=== PATIENT | female | born 1970 | race Caucasian/White ===

== ENCOUNTER → 2024-03-25 11:56 | Outpatient (REF) | payer BC, SELFPAY | LOC: MRI 3T 11:56 | PROVIDERS: ATTENDING PHYSICIAN Surgery; FAMILY PHYSICIAN Physician Assistant Medical | DX: Z15.01 Genetic susceptibility to malignant neoplasm of breast (principal); Z80.3 Family history of malignant neoplasm of breast | CPT/HCPCS: 77049; A9585 ==

== ENCOUNTER → 2024-04-03 09:47 | Outpatient (REF) | payer BC, SELFPAY | LOC: MRI 3T 09:47 | PROVIDERS: ATTENDING PHYSICIAN Internal Medicine; FAMILY PHYSICIAN Physician Assistant Medical | DX: R93.5 Abnormal findings on diagnostic imaging of other abdominal regions, including retroperitoneum (principal); Z15.01 Genetic susceptibility to malignant neoplasm of breast; Z15.09 Genetic susceptibility to other malignant neoplasm; Z80.0 Family history of malignant neoplasm of digestive organs | CPT/HCPCS: 74183; A9575 ==

== ENCOUNTER 2024-10-10 06:21 | Day surgery (SDC) | payer BC, SELFPAY ==
[2024-10-10 08:15] VITALS: BP 124/83
[2024-10-10 08:29] VITALS: BMI 30.6
[2024-10-10 08:30] VITALS: BMI 30.6
[2024-10-10 10:47] VITALS: BP 118/72
[2024-10-10 11:00] VITALS: BP 115/76
[2024-10-10 11:15] VITALS: BP 123/81
== END 2024-10-10 11:30 | disposition home or self-care (01) ==
LOC: SDS 06:21
PROVIDERS: ATTENDING PHYSICIAN Internal Medicine Gastroenterology
DX: Z12.89 Encounter for screening for malignant neoplasm of other sites (principal); K86.89 Other specified diseases of pancreas; K57.10 Diverticulosis of small intestine without perforation or abscess without bleeding; I89.8 Other specified noninfective disorders of lymphatic vessels and lymph nodes; Z80.0 Family history of malignant neoplasm of digestive organs; Z15.01 Genetic susceptibility to malignant neoplasm of breast
CPT/HCPCS: 43259

== ENCOUNTER → 2024-12-04 15:33 | Outpatient (REF) | payer BC, SELFPAY | LOC: WDC 15:33 | PROVIDERS: ATTENDING PHYSICIAN Obstetrics & Gynecology; FAMILY PHYSICIAN Physician Assistant Medical; OTHER PHYSICIAN Surgery | DX: Z12.31 Encounter for screening mammogram for malignant neoplasm of breast (principal) | CPT/HCPCS: 77063; 77067 ==

== ENCOUNTER → 2025-04-08 16:17 | Outpatient (REF) | payer BC, SELFPAY | LOC: MRI 3T 16:17 | PROVIDERS: ATTENDING PHYSICIAN Surgery; FAMILY PHYSICIAN Obstetrics & Gynecology Gynecology | DX: Z15.01 Genetic susceptibility to malignant neoplasm of breast (principal); Z80.3 Family history of malignant neoplasm of breast | CPT/HCPCS: 77049; A9585 ==

== ENCOUNTER → 2025-07-08 14:58 | Outpatient (REF) | payer BC, SELFPAY | LOC: RAD 14:58 | PROVIDERS: ATTENDING PHYSICIAN Internal Medicine Hematology & Oncology; FAMILY PHYSICIAN Physician Assistant Medical | DX: Z15.01 Genetic susceptibility to malignant neoplasm of breast (principal); Z13.820 Encounter for screening for osteoporosis | CPT/HCPCS: 77080 ==